=== PATIENT | male | born 1965 | race Two or more races ===

== ENCOUNTER 2018-10-30 17:19 | Emergency (ER) | payer BC ==
[~2018-10-30] VITALS: Ht 177.8 cm; Wt 127.0 kg
[2018-10-30 17:27] VITALS: BP 166/85
--- NOTE | 2018-10-30 17:28 | NUR ---
ED Nurse Note: pt brayan wilcox 60 from work states he has a headache feels lightheaded and has n/v bs per ems 215. pt is morbidly obese.
[2018-10-30] MEDS ORDERED: Metoclopramide 10mg/2ml Inj IVP ONE (17:45)
[2018-10-30] MEDS ORDERED: DiphenhydrAMINE 50mg/ml Inj IVP ONE (17:45)
--- NOTE | 2018-10-30 18:09 | NUR ---
ED Nurse Note: pt down to ct. pt undressed and placed in gown noticed an abration to left knee.
[2018-10-30 18:22] LABS: APPEARANCE,URINE CLEAR; BILIRUBIN, URINE NEGATIVE (NEGATIVE); GLUCOSE, URINE (UA) 1+ (NEGATIVE); KETONES,URINE NEGATIVE (NEGATIVE); LEUKOCYTE ESTERASE ,URINE NEGATIVE (NEGATIVE); NITRITE,URINE NEGATIVE (NEGATIVE); PH,URINE 6 (4.5-8.0); PROTEIN,URINE 2+ (NEGATIVE); UROBILINOGEN,URINE 1 MG/DL (0.0-1.0)
[2018-10-30 18:26] LABS: ANION GAP 13 mmol/L (5-15); BLOOD UREA NITROGEN 28 mg/dL (7-18); CALCIUM 8.8 MG/DL (8.5-10.1); CARBON DIOXIDE 23 MMOL/L (21-32); CHLORIDE 103 MMOL/L (98-107); CREATININE 1.4 MG/DL (0.55-1.30); POTASSIUM 3.8 MMOL/L (3.5-5.1); SODIUM 139 MMOL/L (136-145)
[2018-10-30 18:28] LABS: COLOR,URINE YELLOW
[2018-10-30 18:32] LABS: BASOPHILS % (AUTO) 1.1 % (0.0-2.0); EOSINOPHILS % (AUTO) 0.9 % (0.0-3.0); HEMATOCRIT 35.5 % (42.0-52.0); HEMOGLOBIN 12.2 G/DL (14.2-18.0); LYMPHOCYTES % (AUTO) 16.6 % (20.0-45.0); MEAN CORPUSCULAR VOLUME 81 FL (80-99); NEUTROPHILS % (AUTO) 75.4 % (45.0-75.0); PLATELET COUNT 287 K/UL (150-450); RED BLOOD COUNT 4.36 M/UL (4.70-6.10); RED CELL DISTRIBUTION WIDTH 12.8 % (11.6-14.8); WHITE BLOOD COUNT 9.7 K/UL (4.8-10.8)
[2018-10-30 18:37] LABS: ALANINE AMINOTRANSFERASE 23 U/L (12-78); ALBUMIN 4.3 G/DL (3.4-5.0); ALBUMIN/GLOBULIN RATIO 1.1 (1.0-2.7); ALKALINE PHOSPHATASE 71 U/L (46-116); ASPARTATE AMINO TRANSFERASE 13 U/L (15-37); BILIRUBIN,TOTAL 0.5 MG/DL (0.2-1.0); CREATINE KINASE 167 U/L (26-308)
--- NOTE | 2018-10-30 18:47 | Emergency Room Report ---
History of Present Illness General Chief Complaint: Headache Source: Patient, EMS Present Illness HPI Patient presents with altered mentation and headache. He was at work today and was wearing something to increase his body temperature. He denies passing out ( although in retrospect, he did pass out) but according to his his daughter says that he called and was incoherent at that time. Also he fell and hit his L knee and also his L chest. He is complaining about a headache at this time. It 's 8/10 and frontal. It's throbbing. He's had headaches before but never one this severe. It didn't start acutely there was no thunderclap. He started feeling nausea initially. After he fell he walked into traffic but was not hit. He was somewhat disoriented at that time. There was no seizure activity. Initially states he did not eat this morning however after that he says that he did eat some food. Patient is treated for hypertension but is not on beta-blockers. He also is on hydrochlorothiazide. He does denies edema however edema is present. Patient denies prior irregular heart rate or rhythm. He is not taking blood thinner at this time. No fevers, chills, chest pain, palpitations, vomiting, diarrhea, dysuria, abdominal pain, shortness of breath, depression, visual changes. Allergies: Coded Allergies: No Known Allergies (Unverified , 10/30/18) Patient History Past Medical History: see triage record Social History: Denies: smoking Social History Narrative Reviewed Nursing Documentation: PMH: Agreed; PSxH: Agreed Nursing Documentation-PM Past Medical History: No Stated History Review of Systems All Other Systems: negative except mentioned in HPI Physical Exam Vital Signs Date Time Temp Pulse Resp B/P (MAP) Pulse Ox O2 Delivery O2 Flow Rate FiO2 10/30/18 17:09 97.5 61 20 99 Room Air 10/30/18 17:27 166/85 Sp02 EP Interpretation: reviewed, normal General Appearance: well appearing, no apparent distress, other - GCS14 Head: normocephalic, atraumatic Eyes: bilateral eye normal inspection, bilateral eye PERRL, bilateral eye EOMI ENT: moist mucus membranes Neck: supple Respiratory: lungs clear, normal breath sounds, other - tender L anterior chest Cardiovascular #1: irregularly irregular, edema - 1+ bilateral pretibial Cardiovascular #2: 2+ radial (R) Gastrointestinal: normal inspection, normal bowel sounds, non tender, no mass, non-distended, overweight Genitourinary: no CVA tenderness Musculoskeletal: back normal, normal range of motion, no calf tenderness Neurologic: alert, motor strength/tone normal, DTRs symmetric, sensory intact, speech normal, other - Somewhat confused, oriented Psychiatric: mood/affect normal Skin: normal color, warm/dry, abrasions Procedures Critical Care Time Critical Care Time Total Critical Care Time: 120 min bedside evaluation and treatment excludes procedures (EKG). Reason for critical care: Atrial flutter, presumptive embolic stroke, repeated neurologic exams, positive troponin, multiple calls and consultations Possible complications: hypotension, hypertension, MD, shock, arrhythmias, metabolic acidosis, end organ damage, respiratory failure. Interventions: Repeated neurologic exams, analgesia, aspirin, repeated exams, arrangement for transfer to higher level of care discussion with family. Course: Patient presented for syncope with new onset atrial flutter fibrillation. CT normal. Elevated troponin treated with aspirin. Repeated neurologic exam with left cerebellar findings. Cardiology consultation. Neurology consultation. Request MRI but unable because of of patient. Attempted transfer to [facility]. Unable. Repeat neurologic exam. Discussion of anticoagulation. Discussion of treatment plan with multiple times. Based on the findings and need for MRI and possible stroke [facility] was contacted. Arrangement for emergent transfer. Bouts of occasional bradycardia and some decreased mentation suggest possible posterior fossa pathology with possible edema post stroke. Findings discussed with excepting neurologist at [facility]. Consultations: nursing staff, EMS, family radiology, [facility], [facility]- neurologist Performed by: Dr. Browne Tolerated well condition = critical and needing higher level of care with possible neurosurgical/neurologic intervention Medical Decision Making Diagnostic Impression: Primary Impression: Syncope Qualified Codes: R55 - Syncope and collapse Additional Impressions: New onset atrial flutter Elevated troponin Renal insufficiency presumptive embolic stroke ER Course Patient presents with headache, nausea and weakness. Differential includes acute microinfarction, dehydration, hyperglycemia, brain bleed amongst others. He has a nonfocal neurologic exam at this time although he is slightly inappropriate. He be evaluated with CT the head, chest x-ray EKG and labs. The patient will receive IV hydration as he appears to be somewhat dry at this time. Initial EKG with A fib. No STEMI Called with + troponin. Aspirin given. Renal insufficiency. Repeat EKG A flutter. No STEMI. - 19:[address]man[address]. Davies 20:15. Requests clear from neuro before anticoagulation. Call Dr. Malave.20:18 Repeat Neuro - slight inaccurate finger-nose and heal de león L. MRI ordered. Seen by PEDIATRIC GENETIC COUNSELOR Darci neurology. Agrees with plan. Improved pain post morphine. Diuresing (unknown reason). Too big for our MRI. Start process for transfer to [facility] @ 21:30 Sent [facility] for possible MRI @ 22:18 [facility] Calling [facility]. 22:[address] Bradley at [facility]. Checking MRI. Accepted [facility] @ 22:47. They are sending transport. Patient easily awakened, but eyes closed. Occasional short episodes of bradycardia. Called to notify Dr. Bradley of concern of possible posterior fossa edema @ 0: 55. Patient already on way to [facility]. Laboratory Tests Test 10/30/18 17:40 10/30/18 18:04 Urine Color Yellow Urine Appearance Clear Urine pH 6 (4.5-8.0) Urine Specific [place] 1.010 (1.005-1.035) Urine Protein 2+ (NEGATIVE) H Urine Glucose (UA) 1+ (NEGATIVE) H Urine Ketones Negative (NEGATIVE) Urine Blood Negative (NEGATIVE) Urine Nitrite Negative (NEGATIVE) Urine Bilirubin Negative (NEGATIVE) Urine Urobilinogen 1 MG/DL (0.0-1.0) H Urine Leukocyte Esterase Negative (NEGATIVE) Urine RBC 0-2 /HPF (0 - 0) H Urine WBC 0-2 /HPF (0 - 0) Urine Squamous Epithelial Cells Occasional /LPF Urine Bacteria None /HPF (NONE) Urine Opiates Screen Negative (NEGATIVE) Urine Barbiturates Screen Negative (NEGATIVE) Phencyclidine (PCP) Screen Negative (NEGATIVE) Urine Amphetamines Screen Negative (NEGATIVE) Urine Benzodiazepines Screen Negative (NEGATIVE) Urine Cocaine Screen Negative (NEGATIVE) Urine Marijuana (THC) Screen Negative (NEGATIVE) White Blood Count 9.7 K/UL (4.8-10.8) Red Blood Count 4.36 M/UL (4.70-6.10) L Hemoglobin 12.2 G/DL (14.2-18.0) L Hematocrit 35.5 % (42.0-52.0) L Mean Corpuscular Volume 81 FL (80-99) Mean Corpuscular Hemoglobin 28.0 PG (27.0-31.0) Mean Corpuscular Hemoglobin Concent 34.4 G/DL (32.0-36.0) Red Cell Distribution Width 12.8 % (11.6-14.8) Platelet Count 287 K/UL (150-450) Mean Platelet Volume 5.2 FL (6.5-10.1) L Neutrophils (%) (Auto) 75.4 % (45.0-75.0) H Lymphocytes (%) (Auto) 16.6 % (20.0-45.0) L Monocytes (%) (Auto) 6.0 % (1.0-10.0) Eosinophils (%) (Auto) 0.9 % (0.0-3.0) Basophils (%) (Auto) 1.1 % (0.0-2.0) Prothrombin Time 10.3 SEC (9.30-11.50) Prothrombin Time INR 1.0 (0.9-1.1) PTT 27 SEC (23-33) Sodium Level 139 MMOL/L (136-145) Potassium Level 3.8 MMOL/L (3.5-5.1) Chloride Level 103 MMOL/L (98-107) Carbon Dioxide Level 23 MMOL/L (21-32) Anion Gap 13 mmol/L (5-15) Blood Urea Nitrogen 28 mg/dL (7-18) H Creatinine 1.4 MG/DL (0.55-1.30) H Estimate Glomerular Filtration Rate 52.8 mL/min (>60) Glucose Level 233 MG/DL (74-106) H Calcium Level 8.8 MG/DL (8.5-10.1) Total Bilirubin 0.5 MG/DL (0.2-1.0) Aspartate Amino Transferase (AST) 13 U/L (15-37) L Alanine Aminotransferase (ALT) 23 U/L (12-78) Alkaline Phosphatase 71 U/L (46-116) Total Creatine Kinase 167 U/L (26-308) Troponin I 0.369 ng/mL (0.000-0.056) Pro-B-Type Natriuretic Peptide 503 pg/mL (0-125) H Total Protein 8.2 G/DL (6.4-8.2) Albumin 4.3 G/DL (3.4-5.0) Globulin 3.9 g/dL Albumin/Globulin Ratio 1.1 (1.0-2.7) EKG Diagnostic Results Rate: other - a fib Rhythm: other - rate 75 ST Segments: no acute changes Rhythm Strip Diag. Results EP Interpretation: yes Rhythm: no PVC's, no ectopy, other - a fib Chest X-Ray Diagnostic Results Chest X-Ray Diagnostic Results : Chest X-Ray Ordered: Yes # of Views/Limited/Complete: 1 View Indication: Other EP Interpretation: Yes Interpretation: no consolidation, no effusion, no pneumothorax, other - inc cor Impression: Other Electronically Signed by: Electronically signed by Reno Browne MD CT/MRI/US Diagnostic Results CT/MRI/US Diagnostic Results : Imaging Test Ordered: head Impression Normal Last Vital Signs Date Time Temp Pulse Resp B/P (MAP) Pulse Ox O2 Delivery O2 Flow Rate FiO2 10/31/18 00:28 97.8 51 12 135/59 100 Room Air Status: improved Disposition: XFER SHT-TRM HOSP - higher level of care Condition: Critical Referrals: NOT CHOSEN IPA/,REFERRING (PCP) Reno Browne MD October 30, 2018 18:47
--- NOTE | 2018-10-30 19:08 | NUR ---
HAND-OFF: Report given to Christina MEJIA.
[2018-10-30] MEDS ORDERED: Morphine Sulfate 4mg/ml Inj (IV USE ONLY) IVP ONE (19:15)
[2018-10-30 19:34] VITALS: BP 154/84
[2018-10-30] MEDS ORDERED: LISINOPRIL40 MG ORAL (20:41)
[2018-10-30] MEDS ORDERED: HYDROCHLOROTHIA25 MG ORAL (20:41)
[2018-10-30] MEDS ORDERED: AMLODIPINE BESYL5 MG ORAL (20:41)
[2018-10-30] MEDS ORDERED: ASPIRIN-LOW81 MG ORAL (20:41)
[2018-10-30] MEDS ORDERED: ATORVASTATIN CA20 MG ORAL (20:41)
[2018-10-30] MEDS ORDERED: CATAPRES0.1 MG ORAL (20:41)
[2018-10-30] MEDS ORDERED: METFORMIN HCL1000 M1 ORAL (20:41)
[2018-10-30] MEDS ORDERED: Gadavist 7.5mMol/7.5ml vial IV PRN (20:45)
--- NOTE | 2018-10-30 21:46 | NUR ---
ED Nurse Note: unable to compelte MRI scan. per piano technician pt was to large in size to fit in MRI machine
[2018-10-30 23:13] VITALS: BP 124/73
--- NOTE | 2018-10-30 23:45 | Consultation ---
History of Present Illness General Date patient seen: October 30, 2018 Chief Complaint: Syncope/ Weakness Present Illness Allergies: Coded Allergies: No Known Allergies (Unverified , 10/30/18) Medication History Scheduled Amlodipine Besylate* (Amlodipine Besylate*), 5 MG ORAL DAILY, (Reported) Aspirin (Aspirin EC), 81 MG ORAL DAILY, (Reported) Atorvastatin Calcium* (Atorvastatin Calcium*), 20 MG ORAL BEDTIME, (Reported) Clonidine Hcl* (Catapres*), 0.1 MG ORAL BID, (Reported) Hydrochlorothiazide* (Hydrochlorothiazide*), 25 MG ORAL DAILY, (Reported) Lisinopril* (Lisinopril*), 40 MG ORAL DAILY, (Reported) Metformin Hcl* (Metformin Hcl*), 1,000 MG ORAL DAILY, (Reported) Patient History Healthcare decision maker Resuscitation status Advanced Directive on File Physical Exam Last 24 Hour Vital Signs Date Time Temp Pulse Resp B/P (MAP) Pulse Ox O2 Delivery O2 Flow Rate FiO2 10/30/18 23:13 97.5 58 12 124/73 98 Room Air 10/30/18 19:57 97.5 10/30/18 19:34 97.5 82 12 154/84 96 Room Air 10/30/18 17:27 97.5 20 166/85 99 Room Air 10/30/18 17:09 97.5 61 20 99 Room Air Laboratory Tests Test 10/30/18 17:40 10/30/18 18:04 10/30/18 23:05 Urine Color Yellow Urine Appearance Clear Urine pH 6 (4.5-8.0) Urine Specific [place] 1.010 (1.005-1.035) Urine Protein 2+ (NEGATIVE) H Urine Glucose (UA) 1+ (NEGATIVE) H Urine Ketones Negative (NEGATIVE) Urine Blood Negative (NEGATIVE) Urine Nitrite Negative (NEGATIVE) Urine Bilirubin Negative (NEGATIVE) Urine Urobilinogen 1 MG/DL (0.0-1.0) H Urine Leukocyte Esterase Negative (NEGATIVE) Urine RBC 0-2 /HPF (0 - 0) H Urine WBC 0-2 /HPF (0 - 0) Urine Squamous Epithelial Cells Occasional /LPF Urine Bacteria None /HPF (NONE) Urine Opiates Screen Negative (NEGATIVE) Urine Barbiturates Screen Negative (NEGATIVE) Phencyclidine (PCP) Screen Negative (NEGATIVE) Urine Amphetamines Screen Negative (NEGATIVE) Urine Benzodiazepines Screen Negative (NEGATIVE) Urine Cocaine Screen Negative (NEGATIVE) Urine Marijuana (THC) Screen Negative (NEGATIVE) White Blood Count 9.7 K/UL (4.8-10.8) Red Blood Count 4.36 M/UL (4.70-6.10) L Hemoglobin 12.2 G/DL (14.2-18.0) L Hematocrit 35.5 % (42.0-52.0) L Mean Corpuscular Volume 81 FL (80-99) Mean Corpuscular Hemoglobin 28.0 PG (27.0-31.0) Mean Corpuscular Hemoglobin Concent 34.4 G/DL (32.0-36.0) Red Cell Distribution Width 12.8 % (11.6-14.8) Platelet Count 287 K/UL (150-450) Mean Platelet Volume 5.2 FL (6.5-10.1) L Neutrophils (%) (Auto) 75.4 % (45.0-75.0) H Lymphocytes (%) (Auto) 16.6 % (20.0-45.0) L Monocytes (%) (Auto) 6.0 % (1.0-10.0) Eosinophils (%) (Auto) 0.9 % (0.0-3.0) Basophils (%) (Auto) 1.1 % (0.0-2.0) Prothrombin Time 10.3 SEC (9.30-11.50) Prothromb Time International Ratio 1.0 (0.9-1.1) Activated Partial Thromboplast Time 27 SEC (23-33) Sodium Level 139 MMOL/L (136-145) Potassium Level 3.8 MMOL/L (3.5-5.1) Chloride Level 103 MMOL/L (98-107) Carbon Dioxide Level 23 MMOL/L (21-32) Anion Gap 13 mmol/L (5-15) Blood Urea Nitrogen 28 mg/dL (7-18) H Creatinine 1.4 MG/DL (0.55-1.30) H Estimat Glomerular Filtration Rate 52.8 mL/min (>60) Glucose Level 233 MG/DL (74-106) H Calcium Level 8.8 MG/DL (8.5-10.1) Total Bilirubin 0.5 MG/DL (0.2-1.0) Aspartate Amino Transf (AST/SGOT) 13 U/L (15-37) L Alanine Aminotransferase (ALT/SGPT) 23 U/L (12-78) Alkaline Phosphatase 71 U/L (46-116) Total Creatine Kinase 167 U/L (26-308) Troponin I 0.369 ng/mL (0.000-0.056) Pending Pro-B-Type Natriuretic Peptide 503 pg/mL (0-125) H Total Protein 8.2 G/DL (6.4-8.2) Albumin 4.3 G/DL (3.4-5.0) Globulin 3.9 g/dL Albumin/Globulin Ratio 1.1 (1.0-2.7) Height (Feet): 5 Height (Inches): 10.00 Weight (Pounds): 280 Medications Current Medications Medications (Trade) Dose Ordered Sig/Nely Route PRN Reason Start Time Stop Time Status Last Admin Dose Admin Gadobutrol (Gadavist) 7.5 mmol NOW PRN IV Radiology Procedure 10/30/18 20:45 11/03/18 20:33 Sodium Chloride 1,000 ml @ 300 mls/hr Q3H20M IV 10/30/18 17:45 11/29/18 17:44 10/30/18 21:38 Anne Bejarano N.P. October 30, 2018 23:45
--- NOTE | 2018-10-31 00:20 | NUR ---
ED Nurse Note: [place] [facility] [place]
[2018-10-31 00:28] VITALS: BP 135/59
--- NOTE | 2018-10-31 00:35 | NUR ---
ED Nurse Note: pt left with [facility] unit RA56 to [facility]. pt is aox4, on room air, pt skin intact except for left knee abrasion present prior to arrival, pt is on room air, ambulatory. pt is also continent. pt shows no signs of distress at themoment. pt belongings given to júnior.
--- NOTE | 2018-10-31 11:06 | Diagnostic Imaging Report ---
Indication: Dyspnea Comparison: None A single view chest radiograph was obtained. Findings: Exam is limited by lung volumes remain low. Pulmonary vascularity is prominent as is heart size. Pulmonary vascular congestion not excluded. Correlate clinically. IMPRESSION: Possible mild pulmonary vascular congestion. Limited evaluation
--- NOTE | 2018-10-31 16:51 | Diagnostic Imaging Report ---
Indication: Headache Technique: Contiguous 5 mm thick transaxial imaging of the head obtained in a Siemens Sensation [address] scanner. Soft tissue and bone windows generated. Automatic Exposure Control was utilized. Total Dose length Product (DLP): 1502.[address] Dose Index Volume (CTDIvol): 70.38 mGy Comparison: none Findings: The size and configuration of the cortical sulci, basal cisterns, and ventricles are within normal limits for age. There is no mass effect, midline shift, or edema identified. There is no evidence of acute hemorrhage or abnormal intra-axial or extra-axial fluid collections. The bones and soft tissues are unremarkable. Impression: No mass effect, edema or acute bleed. The CT scanner at [facility] is accredited by the [employer] and the scans are performed using dose optimization techniques as appropriate to a performed exam including Automatic Exposure control.
== END 2018-10-31 00:35 | disposition short-term general hospital (02) ==
LOC: EDBD 17:19 → EMR 17:50 → EDBEDREQ 19:10 → 2W 19:31 → UNDOADMIN 19:31 → EDBEDREQ 19:44 → 2W 20:45 → EMR 10-31 00:35
DX: R55 Syncope and collapse (principal); I48.92 Unspecified atrial flutter; R79.89 Other specified abnormal findings of blood chemistry; N28.9 Disorder of kidney and ureter, unspecified; I10 Essential (primary) hypertension; R51 Headache; Z79.899 Other long term (current) drug therapy
CPT/HCPCS: 36415; 70450; 71045; 80053; 80307; 81003; 82550; 82570; 83880; 84300; 84484; 85025; 85610; 85730; 93005; 96361; 96374; 96375; 99291; J1200; J2270; J2405; J2765